=== PATIENT | male | born 1975 | race Caucasian/White ===

== ENCOUNTER 2016-09-28 06:48 | Day surgery (SDC) | payer OTHER ==
[2016-09-24 11:08] VITALS: BMI 20.7
[~2016-09-28 06:48] MED LIST: LACTATED RINGERS 1,000 ML IV SCH; LIDOCAINE 1% 20 ML VIAL (10MG/ML) FOR IV START INTRADERMA PRN
[2016-09-28] MEDS ORDERED: LACTATED RINGERS 1,000 ML IV ONE (07:03)
[2016-09-28 07:11] VITALS: TEMP 96.8
[2016-09-28] MEDS ORDERED: MIDAZOLAM 2 MG/2 ML VIAL ONE (07:55)
[2016-09-28] MEDS ORDERED: LIDOCAINE 1% INJ 10MG/ML (20 ML MDV) ONE (07:55)
[2016-09-28] MEDS ORDERED: fentaNYL (PF) 50 MCG/ML 2 ML AMP ONE (07:55)
[2016-09-28] MEDS ORDERED: PROPOFOL 10 MG/ML 20 ML VIAL IV ONE (07:55)
--- NOTE | 2016-09-28 08:18 | P.GSHP ---
History of Present Illness H&P Date: 09/28/16 Chief Complaint: GI bleed 's is a 40-year-old male referred from Dr. Adam Doss. Patient has complaints of intermittent rectal bleeding. Patient states that he has hemorrhoids. He also has a family history of colon cancer with his 2 brothers having colon cancer. - Constitutional Constitutional: Reports as per HPI Past Medical History Additional Past Medical History / Comment(s): bleeding with stools History of Any Multi-Drug Resistant Organisms: None Reported Additional Past Surgical History / Comment(s): tooth extraction Additional Past Anesthesia/Blood Transfusion Reaction / Comment(s): took awhile to wake up with tooth extraction,no hx blood transfusion Smoking Status: Never smoker Past Alcohol Use History: Occasional Past Drug Use History: None Reported - Past Family History Mother Additional Family Medical History / Comment(s): brain aneurysm Father Family Medical History: Diabetes Mellitus Additional Family Medical History / Comment(s): cardiac arrest Brother(s) Family Medical History: Cancer Additional Family Medical History / Comment(s): 2-brother both rectal CA Medications and Allergies Home Medications Medication Instructions Recorded Confirmed Type No Known Home Medications [No 09/24/16 09/28/16 History Known Home Medications] Allergies Allergy/AdvReac Type Severity Reaction Status Date / Time No Known Allergies Allergy Verified 09/28/16 07:13 Surgical - Exam Vital Signs Temp Pulse Resp BP Pulse Ox 96.8 F L 52 L 16 135/93 98 09/28/16 07:09 09/28/16 07:09 09/28/16 07:09 09/28/16 07:09 09/28/16 07:09 - General well developed, no distress - Eyes PERRL - ENT normal pinna - Neck no masses - Respiratory normal expansion - Cardiovascular Rhythm: regular - Abdomen Abdomen: soft, non tender Assessment and Plan Plan: GI Bleed. We'll perform colonoscopy.
--- NOTE | 2016-09-28 08:34 | P.OP ---
Date of Procedure: 09/28/16 Preoperative Diagnosis: GI bleed Postoperative Diagnosis: External hemorrhoids Procedure(s) Performed: Colonoscopy Anesthesia: MAC Surgeon: Trent Sparks Pathology: none sent Condition: stable Disposition: PACU Description of Procedure: The patient's placed on the endoscopy table in the lateral position. IV sedation. Digital rectal exam was performed which revealed a large external hemorrhoid. The flexible colonoscope was then placed patient anus and passed throughout the entire colon. The ileocecal valve was visualized. The cecum, ascending and transverse colon appeared normal. The descending; appeared normal. Scope was then brought back the rectum and this appeared normal. Scope was withdrawn through the anus and some small internal hemorrhoids were seen. Scope was withdrawn for patient.
[2016-09-28 08:57] VITALS: BP 120/88; PULSE 55; RESP 18
== END 2016-09-28 09:14 | disposition home or self-care (01) ==
LOC: ORWHC2ENDO 06:48
PROVIDERS: ATTEND Surgery
DX: K64.4 Residual hemorrhoidal skin tags (principal); Z87.19 Personal history of other diseases of the digestive system; Z80.0 Family history of malignant neoplasm of digestive organs
CPT/HCPCS: 45378; J2250; J2001; J3010; J2704

== ENCOUNTER 2016-11-08 07:29 | Day surgery (SDC) | payer OTHER ==
[~2016-11-08 07:29] MED LIST changes: +DEXAMETHASONE SOD PHOSPHATE 10 MG/ML 1 ML VIAL IV ONE; +HEPARIN SODIUM,PORCINE 5,000 UNIT/ML 1 ML VIAL SQ ONE; +HYDROmorphone 1 MG/ML 1 ML SYRINGE IVP PRN; -LIDOCAINE 1% 20 ML VIAL (10MG/ML) FOR IV START INTRADERMA PRN; +MIDAZOLAM 2 MG/2 ML VIAL IV PRN; +ONDANSETRON 4 MG/2 ML VIAL IVP ONE; +Pre Op ABX Message 1 EACH MISC MISCELLANE ONE; +SCOPOLAMINE 1.5MG/72HR PATCH TRANSDERM ONE
[2016-11-08 07:42] VITALS: TEMP 97.1
--- NOTE | 2016-11-08 07:45 | P.GSHP ---
History of Present Illness H&P Date: 11/08/16 Chief Complaint: Internal initial hemorrhoids This is a 40-year-old male referred from Dr. Esposito. Patient presents today for hemorrhoidectomy. He's had issues with his hemorrhoids. Has complaints of bleeding burning and itching. He's had a colonoscopy shows external and internal hemorrhoids. - Constitutional Constitutional: Reports as per HPI Past Medical History Additional Past Medical History / Comment(s): hemorrhoids-bleeding with stools History of Any Multi-Drug Resistant Organisms: None Reported Additional Past Surgical History / Comment(s): tooth extraction,colonoscopy,rt eye muscle repair Additional Past Anesthesia/Blood Transfusion Reaction / Comment(s): took awhile to wake up with tooth extraction,no hx blood transfusion Past Psychological History: No Psychological Hx Reported Smoking Status: Never smoker Past Alcohol Use History: Occasional Past Drug Use History: None Reported - Past Family History Mother Additional Family Medical History / Comment(s): brain aneurysm Father Family Medical History: Diabetes Mellitus Additional Family Medical History / Comment(s): cardiac arrest Brother(s) Family Medical History: Cancer Additional Family Medical History / Comment(s): 2-brother both rectal CA Medications and Allergies Home Medications Medication Instructions Recorded Confirmed Type No Known Home Medications [No 09/24/16 11/04/16 History Known Home Medications] Allergies Allergy/AdvReac Type Severity Reaction Status Date / Time No Known Allergies Allergy Verified 11/04/16 09:31 Surgical - Exam Vital Signs Temp Pulse Resp BP Pulse Ox 97.1 F L 78 18 142/95 99 11/08/16 07:41 11/08/16 07:41 11/08/16 07:41 11/08/16 07:41 11/08/16 07:41 - General well developed, no distress - Eyes PERRL - Respiratory normal expansion - Cardiovascular Rhythm: regular - Abdomen Abdomen: soft, non tender - Rectum Hemorrhoids: moderate, large (Internal and external hemorrhoids) Assessment and Plan Plan: Internal Hemorrhoids. We'll perform hemorrhoidectomy.
[2016-11-08] MEDS ORDERED: NA PHOS,M-B/NA PHOS,DI-BA 133 ML ENEMA RECTAL ONE (07:51)
[2016-11-08] MEDS ORDERED: LIDOCAINE 1% 20 ML VIAL (10MG/ML) FOR IV START INTRADERMA ONE (08:02)
[2016-11-08] MEDS ORDERED: MIDAZOLAM 2 MG/2 ML VIAL ONE (08:16)
[2016-11-08] MEDS ORDERED: LIDOCAINE 1% INJ 10MG/ML (20 ML MDV) ONE (08:16)
[2016-11-08] MEDS ORDERED: PROPOFOL 10 MG/ML 20 ML VIAL IV ONE (08:16)
[2016-11-08] MEDS ORDERED: fentaNYL (PF) 50 MCG/ML 2 ML AMP ONE (08:16)
[2016-11-08] MEDS ORDERED: BUPIVACAIN-EPI 0.5%-1:200,000 30 ML VIAL SQ ONE ×2 (08:36)
--- NOTE | 2016-11-08 08:49 | P.OP ---
Date of Procedure: 11/08/16 Preoperative Diagnosis: Internal and external hemorrhoids Postoperative Diagnosis: Internal and external hemorrhoids Procedure(s) Performed: Internal and external hemorrhoidectomy Implants: Anesthesia: MAC Surgeon: Trent Sparks Estimated Blood Loss (ml): 5 Pathology: none sent (Hemorrhoids) Condition: stable Disposition: PACU Indications for Procedure: Operative Findings: Description of Procedure: The patient's placed on the operating table in the prone jackknife position. He received IV sedation. His anus was prepped and draped in sterile fashion. The anus was injected with 1% local Xylocaine. The hemorrhoids were examined. Using the bivalved anal retractor the left lateral hemorrhoid column was visualized. The hemorrhoid column was grasped with a pair of Allis clamps and then using Harmonic scissors the rectus performed. Next the right anterior and right posterior columns were excised in identical fashion. The anus was packed with Gelfoam. Patient was sent to recovery in stable condition.
[2016-11-08 09:41] VITALS: BP 134/85; PULSE 61; RESP 18
== END 2016-11-08 09:58 | disposition home or self-care (01) ==
LOC: OR 07:29
PROVIDERS: ATTEND Surgery
DX: K64.8 Other hemorrhoids (principal); K64.4 Residual hemorrhoidal skin tags; K62.1 Rectal polyp
CPT/HCPCS: 88305; 46260; J2250; J1644; J1100; J2405; J2001; J3010; J2704

== ENCOUNTER 2016-12-05 15:10 | Emergency (ER) | payer OTHER ==
[2016-12-05 15:23] VITALS: RESP 18
--- NOTE | 2016-12-05 15:29 | ED ---
Upper Extremity HPI - General Chief Complaint: Extremity Injury, Upper Stated Complaint: L arm swelling Time Seen by Provider: 12/05/16 15:23 Source: patient, RN notes reviewed Mode of arrival: ambulatory Limitations: no limitations - History of Present Illness Initial Comments: 40-year-old male presents emergency Department with chief complaint of left arm pain. Patient states he is right-handed tractor on Tuesday and he grabbed his arm wrong since she's noticed bump that is tender to the left arm. Patient states he's also no swelling to the left arm. Patient denies any fever chills with this any cough cold runny nose. Patient denies any history of MRSA or anything like this in the past. Patient was concerned due to his continued discomfort so he thought that he should be evaluated.Patient denies any recent fever, chills, shortness of breath, chest pain, back pain, abdominal pain, nausea vomiting, numbness or tingling, dysuria or hematuria, constipation or diarrhea, headaches or visual changes, or any other current symptoms. - Related Data Previous Rx's Medication Instructions Recorded Docusate [Colace] 100 mg PO BID #20 capsule 11/08/16 HYDROcodone/APAP 7.5-325MG [[place] 1 each PO Q4H PRN #60 tab 11/08/16 7.5] Sulfamethox-Tmp 800-160Mg [Bactrim 2 each PO Q12HR #56 tab 12/05/16 DS 800-160 mg] Allergies Allergy/AdvReac Type Severity Reaction Status Date / Time No Known Allergies Allergy Verified 12/05/16 15:23 Review of Systems ROS Statement: Those systems with pertinent positive or pertinent negative responses have been documented in the HPI. ROS Other: All systems not noted in ROS Statement are negative. Past Medical History Additional Past Medical History / Comment(s): hemorrhoids-bleeding with stools History of Any Multi-Drug Resistant Organisms: None Reported Additional Past Surgical History / Comment(s): tooth extraction,colonoscopy,rt eye muscle repair hemorrhoidectomyh Additional Past Anesthesia/Blood Transfusion Reaction / Comment(s): took awhile to wake up with tooth extraction,no hx blood transfusion Past Psychological History: No Psychological Hx Reported Smoking Status: Never smoker Past Alcohol Use History: Occasional Past Drug Use History: None Reported - Past Family History Mother Additional Family Medical History / Comment(s): brain aneurysm Father Family Medical History: Diabetes Mellitus Additional Family Medical History / Comment(s): cardiac arrest Brother(s) Family Medical History: Cancer Additional Family Medical History / Comment(s): 2-brother both rectal CA General Exam - General Exam Comments Initial Comments: General: The patient is awake and alert, in no distress, and does not appear acutely ill. Neck: The neck is supple, there is no tenderness. Cardiovascular: There is a regular rate and rhythm. No murmur, rub or gallop is appreciated. Respiratory: Lungs are clear to auscultation, respirations are non-labored, breath sounds are equal. No wheezes, stridor, rales, or rhonchi. Musculoskeletal: Sensation intact with 2+ pulses of the left upper extremity. Fund motion of left shoulder left elbow and left hand. Patient does appear to have a swollen area just above the left elbow that is very tender to touch with some mild fluctuation. There is no open wound or drainage noted. There does appear to be small abrasion over the top of the area. No bony tenderness to the left elbow. Neurological: CN II-XII intact, There are no obvious motor or sensory deficits. Coordination appears grossly intact. Speech is normal. Skin: Skin is warm and dry and no rashes or lesions are noted. Psychiatric: Normal mood and affect. Limitations: no limitations Course Vital Signs 12/05/16 15:21 Temperature 98.7 F Pulse Rate 90 Respiratory 18 Rate Blood Pressure 132/94 O2 Sat by Pulse 99 Oximetry Medical Decision Making - Medical Decision Making 40-year-old male presents to the emergency Department chief complaint of left elbow pain and swelling. At this time patient underwent an ultrasound of the area. This time ultrasound does show a complex area that does appear to be consistent with an abscess. At this time patient underwent I&D of abscess. At this time we did discuss we will start him on antibiotics. We did discuss follow-up return parameters all patient's questions. He stated he understood. The plan. This time he will be discharged home. - Radiology Data Radiology results: report reviewed, image reviewed Disposition Clinical Impression: Abscess of left arm Disposition: HOME SELF-CARE Condition: Stable Instructions: Abscess (ED) Additional Instructions: Please use medication as discussed. Please follow up with family doctor if symptoms have not improved over the next two days. Please return to the emergency room if your symptoms increase or worsen or for any other concerns. Prescriptions: Sulfamethox-Tmp 800-160Mg [Bactrim DS 800-160 mg] 2 each PO Q12HR #56 tab Referrals: Adam Esposito DO [Primary Care Provider] - 1-2 days Time of Disposition: 16:53
--- NOTE | 2016-12-05 16:27 | US ---
EXAMINATION TYPE: US extremity nonvasc mass LT DATE OF EXAM: 12/05/2016 COMPARISON: NONE CLINICAL HISTORY: Pain, redness and swelling of left bicep, patient had a small abrasion there 2 days ago from scratching it on a tractor, currently it is red and swollen. Left bicep shows complex, vascular mass measuring 4.3 x 2.0 x 3.3cm IMPRESSION: There is a complex mass in the area of concern that measures 4.3 x 2 cm and is consisten t with abscess or hematoma.
[2016-12-05] MEDS ORDERED: SULFAMETH-TMP DS STARTER PACK 2 TAB BTL PO STA (16:54)
[2016-12-05 17:07] VITALS: BP 140/98; PULSE 68; TEMP 98
== END 2016-12-05 17:07 | disposition home or self-care (01) ==
LOC: EC 15:10
DX: L02.414 Cutaneous abscess of left upper limb (principal); V84.9XXA Unspecified occupant of special agricultural vehicle injured in nontraffic accident, initial encounter; Y93.89 Activity, other specified
CPT/HCPCS: 10060; 99283

== ENCOUNTER 2016-12-07 08:48 | Inpatient (IN) | payer OTHER ==
[2016-12-07] MEDS ORDERED: SODIUM CHLORIDE 0.9% 1,000 ML IV ONE (09:43)
--- NOTE | 2016-12-07 09:45 | ED ---
Skin/Abscess/FB HPI <Yrn Mixon - Last Filed: 12/07/16 11:04> - General Source: patient, RN notes reviewed Mode of arrival: ambulatory Limitations: no limitations <Marisol Bhat - Last Filed: 12/07/16 12:04> - General Chief complaint: Skin/Abscess/Foreign Body Stated complaint: Swollen Hand-recheck Time Seen by Provider: 12/07/16 09:08 - History of Present Illness Initial comments: Patient is a 40-year-old male presents emergency room for reevaluation of left arm abscess. Patient states he was here about 2 days ago. Patient states he had an ultrasound done and had the abscess incised and drained. Patient states packing was placed. Patient states that he has been taking his prescribed antibiotics as directed. Patient states last night he noticed swelling in his left hand. Patient states he thought this was not normal so he thought he should be reevaluated. Patient states he has not removed the packing. Patient denies apply any warm compresses. Patient denies fevers or chills. Patient denies nausea or vomiting. Patient states he's having 5 out of 10 pain. Patient denies any numbness or tingling in his fingers. (Marisol Bhat) - Related Data Home Medications Medication Instructions Recorded Confirmed Sulfamethox-Tmp 800-160Mg [Bactrim 2 tab PO Q12HR 12/07/16 12/07/16 DS 800-160 mg] Allergies Allergy/AdvReac Type Severity Reaction Status Date / Time No Known Allergies Allergy Verified 12/07/16 09:09 Review of Systems ROS Other: All systems not noted in ROS Statement are negative. <Yrn Mixon - Last Filed: 12/07/16 11:04> ROS Other: All systems not noted in ROS Statement are negative. <Marisol Bhat - Last Filed: 12/07/16 12:04> ROS Statement: Those systems with pertinent positive or pertinent negative responses have been documented in the HPI. Past Medical History Additional Past Medical History / Comment(s): hemorrhoids-bleeding with stools History of Any Multi-Drug Resistant Organisms: None Reported Additional Past Surgical History / Comment(s): tooth extraction,colonoscopy,rt eye muscle repair hemorrhoidectomyh Additional Past Anesthesia/Blood Transfusion Reaction / Comment(s): took awhile to wake up with tooth extraction,no hx blood transfusion Past Psychological History: No Psychological Hx Reported Smoking Status: Never smoker Past Alcohol Use History: Occasional Past Drug Use History: None Reported - Past Family History Mother Additional Family Medical History / Comment(s): brain aneurysm Father Family Medical History: Diabetes Mellitus Additional Family Medical History / Comment(s): cardiac arrest Brother(s) Family Medical History: Cancer Additional Family Medical History / Comment(s): 2-brother both rectal CA <Marisol Bhat - Last Filed: 12/07/16 12:04> General Exam <Yrn Mixon - Last Filed: 12/07/16 11:04> Limitations: no limitations General appearance: alert, in no apparent distress Head exam: Present: atraumatic, normocephalic, normal inspection Eye exam: Present: normal appearance ENT exam: Present: normal exam Neck exam: Present: normal inspection Respiratory exam: Present: normal lung sounds bilaterally. Absent: respiratory distress Cardiovascular Exam: Present: regular rate, normal rhythm, normal heart sounds Left Elbow exam: Absent: normal inspection (open draining wound of left upper arm, superior to the elbow with induration and swelling. ) Hand Wrist exam: Present: swelling Neuro motor exam: Present: wrist extension intact, thumb opposition intact, thumb IP flexion intact, thumb adduction intact, fingers 2-5 abduction intact Vascular: Present: normal capillary refill (Capillary refill less than 2 seconds ), radial pulse (2+), ulnar pulse (2+) Back exam: Present: normal inspection Neurological exam: Present: alert, oriented X3, CN II-XII intact, normal gait Psychiatric exam: Present: normal affect, normal mood Skin exam: Present: warm, dry, intact, normal color. Absent: rash <Marisol Bhat - Last Filed: 12/07/16 12:04> - General Exam Comments Initial Comments: Sitting in exam room, no distress. (Marisol Bhat) Medical Decision Making - Lab Data Result diagrams: 12/07/16 09:35 12/07/16 09:35 <Yrn Mixon - Last Filed: 12/07/16 11:04> - Lab Data Result diagrams: 12/07/16 09:35 12/07/16 09:35 - Radiology Data Radiology results: report reviewed, image reviewed <Marisol Bhat - Last Filed: 12/07/16 12:04> - Medical Decision Making Patient is a 40-year-old male presents to the emergency room for reevaluation of left arm abscess. There is noticeable edema in the left arm compared to the right. Patient started on vancomycin for treatment of cellulitis and failed outpatient treatment. Case discussed with Dr. Mixon. Dr. Mixon discussed case with Dr. Esposito agreed to admit patient. Patient will also have consult with infectious disease. (Marisol Bhat) - Lab Data Lab Results 12/07/16 12/07/16 Range/Units 09:35 09:35 WBC 6.2 (3.8-10.6) k/uL RBC 5.04 (4.30-5.90) m/uL Hgb 15.6 (13.0-17.5) gm/dL Hct 45.2 (39.0-53.0) % MCV 89.6 (80.0-100.0) fL MCH 30.9 (25.0-35.0) pg MCHC 34.5 (31.0-37.0) g/dL RDW 13.1 (11.5-15.5) % Plt Count 259 (150-450) k/uL Neutrophils % 67 % Lymphocytes % 16 % Monocytes % 8 % Eosinophils % 7 % Basophils % 0 % Neutrophils # 4.2 (1.3-7.7) k/uL Lymphocytes # 1.0 (1.0-4.8) k/uL Monocytes # 0.5 (0-1.0) k/uL Eosinophils # 0.4 (0-0.7) k/uL Basophils # 0.0 (0-0.2) k/uL Sodium 141 (137-145) mmol/L Potassium 5.0 (3.5-5.1) mmol/L Chloride 105 (98-107) mmol/L Carbon Dioxide 20 L (22-30) mmol/L Anion Gap 16 mmol/L BUN 5 L (9-20) mg/dL Creatinine 0.90 (0.66-1.25) mg/dL Est GFR (MDRD) Af Amer >60 (>60 ml/min/1.73 sqM) Est GFR (MDRD) Non-Af >60 (>60 ml/min/1.73 sqM) Glucose 80 (74-99) mg/dL Calcium 9.7 (8.4-10.2) mg/dL Total Bilirubin 0.6 (0.2-1.3) mg/dL AST 32 (17-59) U/L ALT 39 (21-72) U/L Alkaline Phosphatase 85 (38-126) U/L Total Protein 7.3 (6.3-8.2) g/dL Albumin 4.4 (3.5-5.0) g/dL Disposition <Yrn Mixon - Last Filed: 12/07/16 11:04> Decision Date: 12/07/16 <Marisol Bhat - Last Filed: 12/07/16 12:04> Clinical Impression: Left arm cellulitis, Abscess of left arm, Failure of outpatient treatment Disposition: ADMITTED IP TO THIS HOSP Condition: Stable
[2016-12-07 10:15] LABS: Basophils % (A) 0 %; CH 30.5; CHCM 34.2; Eosinophils # (A) 0.4 k/uL (0-0.7); Eosinophils % (A) 7 %; HCT 45.2 % (39.0-53.0); HDW 2.41; HGB 15.6 gm/dL (13.0-17.5); Luc # (Auto) 0.13; Luc % (Auto) 2; Lymphocytes % (A) 16 %; MCH 30.9 pg (25.0-35.0); MCHC 34.5 g/dL (31.0-37.0); MCV 89.6 fL (80.0-100.0); Mean Platelet Volume 8.9; Monocytes # (A) 0.5 k/uL (0-1.0); Monocytes % (A) 8 %; Neutrophils # (A) 4.2 k/uL (1.3-7.7); Neutrophils % (A) 67 %; RBC 5.04 m/uL (4.30-5.90); RDW 13.1 % (11.5-15.5); WBC 6.2 k/uL (3.8-10.6); WBC (Perox) 6.18
[2016-12-07 10:27] LABS: ALT 39 U/L (21-72); AST 32 U/L (17-59); Alkaline Phosphatase 85 U/L (38-126); Anion Gap 16 mmol/L; Blood Urea Nitrogen 5 mg/dL (9-20); Calcium 9.7 mg/dL (8.4-10.2); Carbon Dioxide 20 mmol/L (22-30); Chloride 105 mmol/L (98-107); Glucose 80 mg/dL (74-99); Non-African American GFR(MDRD) >60 (>60 ml/min/1.73 sqM); Sodium 141 mmol/L (137-145); Total Bilirubin 0.6 mg/dL (0.2-1.3); Total Protein 7.3 g/dL (6.3-8.2)
--- NOTE | 2016-12-07 10:28 | XR ---
Left elbow HISTORY: Abscess drainage, pain 3 views of the left elbow There is soft tissue swelling present. Alignment, joint spaces, bone mineralization are maintained. N o evident joint effusion. No evident periostitis. IMPRESSION: Correlate for cellulitis, edema.
[2016-12-07] MEDS ORDERED: IV VANCOMYCIN PER PHARMACY 1 EACH MISC MISCELLANE PRN (10:56)
[2016-12-07] MEDS ORDERED: IV VANCOMYCIN PER PHARMACY 1 EACH MISC MISCELLANE STA (11:00)
[2016-12-07] MEDS ORDERED: VANCOMYCIN 1,250 MG in SODIUM CHLORIDE 0.9% 250 ML IVPB STA (11:10)
[2016-12-07] MEDS ORDERED: ACETAMINOPHEN TAB 325 MG TAB PO PRN (11:28)
[2016-12-07] MEDS ORDERED: NALOXONE 0.4 MG/ML 1 ML VIAL IV PRN (11:28)
[2016-12-07] MEDS ORDERED: ONDANSETRON 4 MG/2 ML VIAL IVP PRN (11:28)
[2016-12-07] MEDS ORDERED: IBUPROFEN 400 MG TAB PO PRN (11:28)
[2016-12-07] MEDS ORDERED: KETOROLAC 30 MG/ML 1 ML VIAL IVP PRN (11:28)
[2016-12-07] MEDS: SODIUM CHLORIDE 0.9% 1,000 ML IV SCH (12:18)
[2016-12-07] MEDS: HYDROcodone/APAP 5-325MG 1 EACH TAB PO PRN (18:38)
[2016-12-07] MEDS: VANCOMYCIN 1,250 MG in SODIUM CHLORIDE 0.9% 250 ML IVPB SCH (20:57)
[2016-12-08] MEDS: SODIUM CHLORIDE 0.9% 1,000 ML IV SCH ×2 (06:28→11:21)
[2016-12-08 07:58] LABS: Basophils % (A) 0 %; CH 30.5; CHCM 33.7; Eosinophils # (A) 0.3 k/uL (0-0.7); Eosinophils % (A) 8 %; HCT 40.9 % (39.0-53.0); HDW 2.47; Luc # (Auto) 0.14; Luc % (Auto) 3; Lymphocytes # (A) 1.1 k/uL (1.0-4.8); Lymphocytes % (A) 24 %; MCHC 34.1 g/dL (31.0-37.0); MCV 90.8 fL (80.0-100.0); Mean Platelet Volume 8.5; Monocytes # (A) 0.4 k/uL (0-1.0); Monocytes % (A) 8 %; Neutrophils # (A) 2.6 k/uL (1.3-7.7); Neutrophils % (A) 56 %; RBC 4.51 m/uL (4.30-5.90); RDW 12.9 % (11.5-15.5); WBC 4.5 k/uL (3.8-10.6); WBC (Perox) 4.71
[2016-12-08 07:59] LABS: ALT 28 U/L (21-72); AST 18 U/L (17-59); Alkaline Phosphatase 68 U/L (38-126); Anion Gap 10 mmol/L; Blood Urea Nitrogen 10 mg/dL (9-20); Calcium 8.9 mg/dL (8.4-10.2); Carbon Dioxide 21 mmol/L (22-30); Chloride 108 mmol/L (98-107); Glucose 84 mg/dL (74-99); Non-African American GFR(MDRD) >60 (>60 ml/min/1.73 sqM); Sodium 139 mmol/L (137-145); Total Bilirubin 0.5 mg/dL (0.2-1.3); Total Protein 6.1 g/dL (6.3-8.2)
[2016-12-08 08:02] LABS: Potassium 4.6 mmol/L (3.5-5.1)
[2016-12-08] MEDS: VANCOMYCIN 1,250 MG in SODIUM CHLORIDE 0.9% 250 ML IVPB SCH ×2 (09:33→20:08)
--- NOTE | 2016-12-08 11:02 | P.CONS ---
History of Present Illness - Reason for Consult Consult date: 12/07/16 Left arm abscess and cellulitis Requesting physician: Adam Esposito - Chief Complaint Left arm pain and swelling 3 days - History of Present Illness Patient is a 40-year-old male who did develop a painful lump to his left antecubital fossa on Tuesday, December 03 the patient said he was working on a machine and was rubbing against his left forearm area and has led to this area of swelling , the area become more swollen and red and painful describing the pain to be throbbing with intensity of 7-8 out of 10 and no radiation for the same reason the patient was evaluated at [facility] ER on 12/05/2016 the patient did have drainage of an abscess unfortunately no cultures were done the patient has been discharged home on Bactrim DS, the patient presented back to the ER this morning for removal of the packing he was noticed to have more swelling redness of the forearm area hence the patient has been admitted to the hospital he was started vancomycin and ID was consulted for further recommendation regarding antibiotic therapy. The patient is afebrile pain to the left antecubital fossa area is dull 2-3 out of 10 and no radiation he did mention of some yellow drainage from it of the he was discharged from the ER on Tuesday the patient categorically denies using any IV drugs Review of Systems Review of system Constitutional: The patient denies any fever or rigors or chills, the patient does complain of weakness. Eyes: No complaint ENT: No complaint Respiratory: No complaint Cardiovascular: No complaint Gastrointestinal: No complaint Genitourinary: No complaint Musculoskeletal: No complaint Integumentary: As per history of present illness Endocrine : No complaint Psycologial : No complaint Neurological: No complaint. Past Medical History Additional Past Medical History / Comment(s): hemorrhoids-bleeding with stools History of Any Multi-Drug Resistant Organisms: None Reported Additional Past Surgical History / Comment(s): tooth extraction,colonoscopy,rt eye muscle repair hemorrhoidectomyh Additional Past Anesthesia/Blood Transfusion Reaction / Comm: took awhile to wake up with tooth extraction,no hx blood transfusion Past Psychological History: No Psychological Hx Reported Smoking Status: Never smoker Past Alcohol Use History: Occasional Past Drug Use History: None Reported - Past Family History Mother Additional Family Medical History / Comment(s): brain aneurysm Father Family Medical History: Diabetes Mellitus Additional Family Medical History / Comment(s): cardiac arrest Brother(s) Family Medical History: Cancer Additional Family Medical History / Comment(s): 2-brother both rectal CA Medications and Allergies Home Medications Medication Instructions Recorded Confirmed Type Sulfamethox-Tmp 800-160Mg [Bactrim 2 tab PO Q12HR 12/07/16 12/07/16 History DS 800-160 mg] Allergies Allergy/AdvReac Type Severity Reaction Status Date / Time No Known Allergies Allergy Verified 12/07/16 09:09 Physical Exam Vitals: Vital Signs Temp Pulse Pulse Resp BP BP Pulse Ox 12/07/16 14:09 64 16 12/07/16 13:38 97.6 F 64 16 129/81 98 12/07/16 12:15 98.3 F 59 L 18 128/83 99 12/07/16 11:38 97.0 F L 63 18 139/89 99 12/07/16 10:36 98.2 F 62 18 127/86 98 12/07/16 08:54 98.9 F 69 20 139/66 99 Intake and Output 12/07/16 12/07/16 12/07/16 06:59 14:59 22:59 Intake Total 240 Balance 240 Intake: Oral 240 Other: # Voids 2 Weight 65.771 kg Patient Weight 12/08/16 06:59 Weight 65.771 kg General: The patient is awake and alert, in no distress. Skin: no rashes or lesions are noted no masses palpable. Eye: Pupils are equal, round and reactive to light, there is normal conjunctiva bilaterally. Ears, nose, mouth and throat: There are moist mucous membranes and no oral lesions. Neck: The neck is supple, there is no thyromegaly. Cardiovascular: S1-S2 regular rate and rhythm. No murmur. Respiratory: Unlabored breathing clear to auscultation bilaterally Gastrointestinal: Soft, non-distended, non-tender abdomen without masses or organomegaly noted. There is no rebound or guarding present. Bowel sounds are unremarkable. Back: There is no tenderness to palpation in the midline. There is no obvious deformity. Musculoskeletal: Superficial wound to the left antecubital fossa with no significant surrounding swelling or redness or any purulent drainage Psychiatric: Patient is awake and alert and oriented 3, appropriate mood & affect, normal judgment. Results CBC & Chem 7: 07/12/17 07:09 12/08/16 07:09 Labs: Abnormal Lab Results - Last 24 Hours (Table) 12/07/16 Range/Units 09:35 Carbon Dioxide 20 L (22-30) mmol/L BUN 5 L (9-20) mg/dL Microbiology - Last 24 Hours (Table) 12/07/16 09:35 Wound Culture - Preliminary Arm - Left Assessment and Plan (1) Abscess of left arm Status: Acute Plan: 1-left antecubital fossa abscess status post drainage likely from gram-positive skin deric unfortunately no cultures were done at the time of drainage of this abscess on Tuesday culture has been obtained we'll wait for them to be finalize 2-vancomycin pharmacy to dose with target trough of 15 to continue 3-Aquacel silver packing of the wound to be changed daily 4-we will follow-up on his clinical condition and culture to further adjust his medication if needed thank you for this consultation will follow this patient along with you Time with Patient: Greater than 30
--- NOTE | 2016-12-08 15:50 | P.PN ---
Subjective Principal diagnosis: Left arm and antecubital fossa abscess and cellulitis The patient is afebrile he is breathing comfortably denies significant chest pain shortness of breath or cough still having swelling of his left arm but no significant redness and no significant drainage from the wound and no diarrhea with an antibiotic therapy Objective - Vital Signs Vital signs: Vital Signs Temp 97.5 F L 12/08/16 07:00 Pulse 59 L 12/08/16 07:00 Resp 16 12/08/16 07:00 BP 128/88 12/08/16 07:00 Pulse Ox 97 12/08/16 07:00 Intake & Output 12/07/16 12/08/16 12/08/16 18:59 06:59 18:59 Intake Total 240 1180 Balance 240 1180 Weight 65.771 kg 65.771 kg Intake: Oral 240 1180 Other: Voiding Method Toilet # Voids 2 1 - Exam GENERAL DESCRIPTION:[ Patient is awake and alert in no distress] HEENT: [Oral mucosa is dry and no pharyngeal erythema] EYES : [No pallor or scleral icterus] RESPIRATORY SYSTEM: [Unlabored breathing clear to auscultation] CARDIA VASCULAR SYSTEM: [S1-S2 regular rate and rhythm no murmur] GI: [Abdominal soft there's no tenderness no organomegaly] EXTREMITIES: [Left forearm with some swelling but no redness wound is dressed with no drainage] - Labs CBC & Chem 7: 12/08/16 07:09 12/08/16 07:09 Labs: Abnormal Lab Results - Last 24 Hours (Table) 12/08/16 Range/Units 07:09 Chloride 108 H (98-107) mmol/L Carbon Dioxide 21 L (22-30) mmol/L Total Protein 6.1 L (6.3-8.2) g/dL Albumin 3.4 L (3.5-5.0) g/dL Microbiology - Last 24 Hours (Table) 12/07/16 09:35 Gram Stain - Preliminary Arm - Left Wound Culture - Preliminary Assessment and Plan (1) Abscess of left arm Status: Acute Plan: 1-left antecubital fossa abscess status post drainage likely from gram-positive skin deric unfortunately no cultures were done at the time of drainage of this abscess on Tuesday culture has been obtained we'll wait for them to be finalize, patient at this time we'll continue with vancomycin pharmacy to dose with target trough of 15 2-Aquacel silver packing of the wound to be changed daily, however and has been advised to apply and Jagdish wrap from just above the finger to above the elbow area
[2016-12-08] MEDS: HYDROcodone/APAP 5-325MG 1 EACH TAB PO PRN (20:08)
[2016-12-09] MEDS: SODIUM CHLORIDE 0.9% 1,000 ML IV SCH ×3 (05:02→14:08)
[2016-12-09] MEDS ORDERED: VANCOMYCIN TROUGH DUE 1 EACH MISC MISCELLANE ONE (08:00)
[2016-12-09] MEDS: VANCOMYCIN 1,250 MG in SODIUM CHLORIDE 0.9% 250 ML IVPB SCH ×2 (09:01→20:11)
[2016-12-09] MEDS: HYDROcodone/APAP 5-325MG 1 EACH TAB PO PRN (11:05)
--- NOTE | 2016-12-09 23:21 | P.PN ---
Subjective Principal diagnosis: Left arm and antecubital fossa abscess and cellulitis The patient is afebrile he is breathing comfortably denies significant chest pain shortness of breath or cough, swelling of his left arm has improved and no redness and no significant drainage from the wound and no diarrhea with an antibiotic therapy Objective - Vital Signs Vital signs: Vital Signs Temp 97.6 F 12/09/16 07:00 Pulse 67 12/09/16 07:00 Resp 16 12/09/16 08:00 BP 130/84 12/09/16 07:00 Pulse Ox 97 12/09/16 07:00 Intake & Output 12/08/16 12/09/16 12/09/16 18:59 06:59 18:59 Intake Total 1160 1080 Balance 1160 1080 Weight 65.771 kg 65.771 kg Intake: Intake, IV Titration 1160 Amount Sodium Chloride 0.9% 1, 160 000 ml @ 100 mls/hr IV . Q10H [facility] Rx#:[id number] Vancomycin 1,250 mg In 1000 Sodium Chloride 0.9% 250 ml @ 125 mls/hr IVPB Q12HR [facility] Rx#:[id number] Oral 1080 Other: Voiding Method Toilet Toilet # Voids 1 - Exam GENERAL DESCRIPTION:[ Patient is awake and alert in no distress] HEENT: [Oral mucosa is dry and no pharyngeal erythema] EYES : [No pallor or scleral icterus] RESPIRATORY SYSTEM: [Unlabored breathing clear to auscultation] CARDIA VASCULAR SYSTEM: [S1-S2 regular rate and rhythm no murmur] GI: [Abdominal soft there's no tenderness no organomegaly] EXTREMITIES: [Left forearm less swelling no redness wound no drainage] - Labs CBC & Chem 7: 12/08/16 07:09 12/08/16 07:09 Labs: Microbiology - Last 24 Hours (Table) 12/07/16 09:55 Blood Culture - Preliminary Blood No Growth after 48 hours 12/07/16 09:35 Gram Stain - Preliminary Arm - Left Wound Culture - Preliminary Assessment and Plan (1) Abscess of left arm Status: Acute Plan: 1-left antecubital fossa abscess status post drainage likely from gram-positive skin deric unfortunately no cultures were done at the time of drainage of this abscess on Tuesday culture has been obtained which are currently pending, patient at this time we'll continue with vancomycin pharmacy to dose with target trough of 15 2-Aquacel silver packing of the wound to be changed daily, followed by Jagdish wrap from just above the finger to above the elbow area Time with Patient: Less than 30
[2016-12-10 00:46] VITALS: RESP 16; TEMP 98.1
[2016-12-10] MEDS: SODIUM CHLORIDE 0.9% 1,000 ML IV SCH ×2 (05:53→07:49)
[2016-12-10 07:36] VITALS: BP 133/92; PULSE 51
[2016-12-10] MEDS: VANCOMYCIN 1,250 MG in SODIUM CHLORIDE 0.9% 250 ML IVPB SCH (07:46)
--- NOTE | 2016-12-10 23:01 | P.PN ---
Subjective Principal diagnosis: Left arm and antecubital fossa abscess and cellulitis The patient is afebrile , the pt is breathing comfortably , pt denies chest pain shortness of breath or cough, left arm swelling has improved no redness and no significant drainage from the wound , pt with no diarrhea Objective - Vital Signs Vital signs: Vital Signs Temp 98.1 F 12/10/16 07:00 Pulse 51 L 12/10/16 08:00 Resp 16 12/10/16 08:00 BP 133/92 12/10/16 07:00 Pulse Ox 98 12/10/16 07:00 Intake & Output 12/09/16 12/10/16 12/10/16 18:59 06:59 18:59 Intake Total 1000 1530 Output Total 2 1 Balance 998 1529 Intake: Intake, IV Titration 250 Amount Vancomycin 1,250 mg In 250 Sodium Chloride 0.9% 250 ml @ 125 mls/hr IVPB Q12HR [facility] Rx#:[id number] Oral 1000 1280 Output: Stool 2 1 Other: Voiding Method Toilet Toilet Toilet # Voids 2 - Exam GENERAL DESCRIPTION:[ Patient is awake and alert in no distress] HEENT: [Oral mucosa is dry and no pharyngeal erythema] EYES : [No pallor or scleral icterus] RESPIRATORY SYSTEM: [Unlabored breathing clear to auscultation] CARDIA VASCULAR SYSTEM: [S1-S2 regular rate and rhythm no murmur] GI: [Abdominal soft there's no tenderness no organomegaly] EXTREMITIES: [Left forearm less swelling no redness wound no drainage] - Labs CBC & Chem 7: 12/08/16 07:09 12/08/16 07:09 Labs: Microbiology - Last 24 Hours (Table) 12/07/16 09:55 Blood Culture - Preliminary Blood No Growth after 72 hours 12/07/16 09:35 Gram Stain - Final Arm - Left Wound Culture - Final Assessment and Plan (1) Abscess of left arm Status: Acute Plan: 1-left antecubital fossa abscess status post drainage likely from gram-positive skin deric unfortunately no cultures were done at the time of drainage of this abscess on Tuesday culture has been obtained which are negative, patient did have improvment with vancomycin , plan to finish therapy with oral bactrim Ds x 10 days. local wound care with Aquacel silver packing to be changed daily, followed by Jagdish wrap.
== END 2016-12-10 14:00 | disposition home or self-care (01) | DRG 603 ==
LOC: EC 08:48 → 5MS5E 11:06
PROVIDERS: ADMIT Family Medicine; ATTEND Family Medicine
DX: L03.114 Cellulitis of left upper limb (principal); Z80.0 Family history of malignant neoplasm of digestive organs; L02.414 Cutaneous abscess of left upper limb; Z82.41 Family history of sudden cardiac death; Z83.3 Family history of diabetes mellitus
CPT/HCPCS: 36415; 80053; 80202; 85025; 87040; 87070; 87205

== ENCOUNTER 2020-08-13 15:20 | Emergency (ER) | payer OTHER ==
[2020-08-13 15:50] VITALS: BP 149/97; PULSE 98; RESP 18; TEMP 98.5
--- NOTE | 2020-08-13 17:19 | XR ---
EXAMINATION TYPE: XR hand complete LT DATE OF EXAM: 08/13/2020 COMPARISON: NONE HISTORY: Pain and swelling TECHNIQUE: 3 views FINDINGS: I see no fracture nor dislocation. Joint spaces are fairly normal. There are no erosions. M etacarpals are intact. IMPRESSION: Negative left hand exam.
[2020-08-13] MEDS ORDERED: CEPHALEXIN 500MG STARTER PACK 4 CAP BTL PO STA (17:29)
[2020-08-13] MEDS ORDERED: SULFAMETH-TMP DS STARTER PACK 2 TAB BTL PO STA (17:29)
--- NOTE | 2020-08-13 17:31 | ED ---
Upper Extremity HPI - General Chief Complaint: Extremity Injury, Upper Stated Complaint: Lft hand swelling Time Seen by Provider: 08/13/20 16:05 Source: patient Mode of arrival: ambulatory Limitations: no limitations - History of Present Illness Initial Comments: 44-year-old male presenting today for chief complaint of left hand swelling. Patient states that he has had left hand swelling and redness for the past day. He states 3 days ago he poked himself with a nail in the left wrist. Patient states is not very deep and he is not sure if this is really the cause. Patient states he has had previous skin infections. Patient denies adverse chills general malaise he denies any pain of the hand or inability to flex extend the digits. Patient additional complaints upon arrival he appears well nontoxic unsure of last tetanus - Related Data Home Medications Medication Instructions Recorded Confirmed Sulfamethox-Tmp 800-160Mg [Bactrim 2 tab PO Q12HR 12/07/16 12/07/16 DS 800-160 mg] Previous Rx's Medication Instructions Recorded Cephalexin [Keflex] 500 mg PO Q6HR 7 Days #28 cap 08/13/20 Sulfamethox-Tmp 800-160Mg [Bactrim 1 tab PO DAILY 7 Days #14 tab 08/13/20 DS 800-160 mg] Allergies Allergy/AdvReac Type Severity Reaction Status Date / Time No Known Allergies Allergy Verified 08/13/20 15:50 Review of Systems ROS Statement: Those systems with pertinent positive or pertinent negative responses have been documented in the HPI. ROS Other: All systems not noted in ROS Statement are negative. Past Medical History Additional Past Medical History / Comment(s): hemorrhoids-bleeding with stools History of Any Multi-Drug Resistant Organisms: None Reported Additional Past Surgical History / Comment(s): tooth extraction,colonoscopy,rt eye muscle repair hemorrhoidectomy, Additional Past Anesthesia/Blood Transfusion Reaction / Comment(s): took awhile to wake up with tooth extraction,no hx blood transfusion Past Psychological History: No Psychological Hx Reported Smoking Status: Never smoker Past Alcohol Use History: Occasional Past Drug Use History: None Reported - Past Family History Mother Additional Family Medical History / Comment(s): brain aneurysm Father Family Medical History: Diabetes Mellitus Additional Family Medical History / Comment(s): cardiac arrest Brother(s) Family Medical History: Cancer Additional Family Medical History / Comment(s): 2-brother both rectal CA General Exam - General Exam Comments Initial Comments: General: The patient is awake and alert, in no distress Eye: +3 mm pupils are equal, round and reactive to light, extra-ocular movements are intact. No nystagmus. There is normal conjunctiva bilaterally. No signs of icterus. Musculoskeletal: diffuse redness right hand. (-) thom. (-) tinels sign. patient is melissa to flex and extend digits of left hadn without pain. no pain along flexor sheath. small puncture left ventral wrist. Normal ROM of wrists and digit, no localized swelling. . Strength 5/5. Sensation intact. no fusiform swelling of digits Radial pulses equal bilaterally 2+. Neurological: A&O x 3. CN II-XII intact grossly, There are no obvious motor or sensory deficits. Coordination appears grossly intact. Speech is normal. Skin: Skin is warm and dry and no rashes or lesions are noted. Psychiatric: Cooperative, appropriate mood & affect, normal judgment. Limitations: no limitations Course Vital Signs 08/13/20 15:45 Temperature 98.5 F Pulse Rate 98 Respiratory 18 Rate Blood Pressure 149/97 O2 Sat by Pulse 98 Oximetry Medical Decision Making - Medical Decision Making hand evaluated does not exemplify the kanavel signs. patient evaluated by attending at [facility] time appears to be developing cellulitis i did discussed signs of flexor tenosynovitis, and strict return parameters, as well as signs of worsening infection patient verbalized understanding is discharged appearing well with oral antibiotics. He does not appear toxic. No foreign body and tdap updated. Disposition Clinical Impression: Cellulitis of left hand, Puncture wound Disposition: HOME SELF-CARE Condition: Good Additional Instructions: Please use medication as discussed. Please follow-up with family doctor in the next 2 days. If fingers swell, pain on palm, wrist and cannot move fingers/or is paniful to flex/extend fingers return to ER or if redness worsening/spreading, develop flu like symptoms or fevers. Please return to emergency room if the symptoms increase or worsen or for any other concerns. Prescriptions: Sulfamethox-Tmp 800-160Mg [Bactrim DS 800-160 mg] 1 tab PO DAILY 7 Days #14 tab Cephalexin [Keflex] 500 mg PO Q6HR 7 Days #28 cap Is patient prescribed a controlled substance at d/c from ED?: No Referrals: Adam Esposito DO [Primary Care Provider] - 1-2 days Time of Disposition: 17:31
[2020-08-13] MEDS ORDERED: DIPH,PERTUS(ACELL)TETVAC-LF 0.5 ML VIAL IM ONE (17:34)
== END 2020-08-13 18:11 | disposition home or self-care (01) ==
LOC: EC 15:20
DX: S61.432A Puncture wound without foreign body of left hand, initial encounter (principal); X58.XXXA Exposure to other specified factors, initial encounter; Z23 Encounter for immunization
CPT/HCPCS: 90471; 90715; 99283